=== PATIENT | female | born 1970 | race Caucasian/White ===

== ENCOUNTER → 2022-11-08 09:24 | Outpatient (CLI) | payer OTHER, SELFPAY ==
--- NOTE | ~2022-11-08 | MMUS_ITS ---
EXAMINATION: MM diagnostic frieda BI w yon, US breast BI complete HISTORY: Follow-up breast asymmetries TECHNIQUE: Additional 3-D tomosynthesis images of the breasts were performed and synthetic 2-D images were generated. CAD analysis was submitted and interpreted. High resolution bilateral complete breas t ultrasound was performed. COMPARISON: Comparison to multiple prior studies sequentially, with oldest reviewed study dated 06/2020. BREAST PARENCHYMAL COMPOSITION: Breast composed of scattered areas of fibroglandular density FINDINGS: MAMMOGRAPHIC FINDINGS: There are no discrete masses, suspicious clusters of calcifications or focal architectural distortion in either breast to suggest malignancy. ULTRASOUND: Complete bilateral US of all 4 quadrants of the breasts and retroareolar region was reviewed. Right breast ultrasound: At 12:00, 4 cm from the nipple there is a 5 mm cyst. At 1:00, 3 cm from the nipple, there is a 3 mm cyst. Left breast: At 1:00, 2 cm from the nipple, there is a minimally complicated 3 mm cyst. At 4:00, 0.5 cm from the nipple, there is an oval circumscribed parallel oriented hypoechoic mass measuring 4 mm w ithout posterior features or internal vascularity, likely benign. No other mass identified. IMPRESSION: 1. No evidence for malignancy in the right breast. Probable benign left breast mass by ultrasound at 4:00, 0.5 cm from the nipple. 2. Recommend 6 month follow-up Limited left breast ultrasound BI-RADS category 3, probably benign findings. Reviewed, dictated and finalized at location A. IMPRESSION: 1. No evidence for malignancy in the right breast. Probable benign left breast mass by ultrasound at 4:00, 0.5 cm from the nipple. 2. Recommend 6 month follow-up Limited left breast ultrasound BI-RADS category 3, probably benign findings.
== END ==
PROVIDERS: PCP Obstetrics & Gynecology Gynecology; Visit Provider Obstetrics & Gynecology Gynecology
DX: R92.8 Other abnormal and inconclusive findings on diagnostic imaging of breast (principal)
CPT/HCPCS: 76641; 77062; 77066; G0279

== ENCOUNTER → 2023-05-03 08:44 | Outpatient (CLI) | payer OTHER, SELFPAY ==
--- NOTE | ~2023-05-03 | MMUS_ITS ---
EXAMINATION: MM diagnostic frieda LT w yon, US breast LT limited HISTORY: Six-month follow-up for probably benign left breast mass TECHNIQUE: Craniocaudal, mediolateral, and mediolateral oblique 3-D tomosynthesis images of the left breast were performed and synthetic 2-D images were generated. CAD analysis was submitted and interpr eted. High resolution limited left breast ultrasound was performed. COMPARISON: 11/08/2022, 05/10/2022, 09/29/2021, 09/25/2021, 09/22/2020 BREAST PARENCHYMAL COMPOSITION: There are scattered areas of fibroglandular density. FINDINGS: MAMMOGRAPHIC FINDINGS: There is stable chronic focal asymmetry in the middle third of the upper outer quadrant of the breast . No suspicious mass, calcification, or architectural distortion are identified. ULTRASOUND: There are small cysts in the upper outer quadrant of the left breast. A mildly dilated duct is seen a t the 4:00 location near the nipple. The previously described periareolar left breast mass is not def initely identified. IMPRESSION: 1. No mammographic or sonographic evidence of malignancy. 2. Recommend routine screening mammography, due in October. BI-RADS Category 2: Benign finding(s). Reviewed, dictated and finalized at location A. IC CLEANER IMPRESSION: 1. No mammographic or sonographic evidence of malignancy. 2. Recommend routine screening mammography, due in October. BI-RADS Category 2: Benign finding(s).
== END ==
PROVIDERS: PCP Obstetrics & Gynecology Gynecology; Visit Provider Obstetrics & Gynecology Gynecology
DX: N63.20 Unspecified lump in the left breast, unspecified quadrant (principal)
CPT/HCPCS: 76642; 77061; 77065; G0279

== ENCOUNTER 2023-11-11 08:41 | Outpatient (CLI) | payer OTHER, SELFPAY ==
--- NOTE | ~2023-11-11 | MM_ITS ---
EXAMINATION: MM screening frieda BI w yon HISTORY: Screening TECHNIQUE: Craniocaudal and mediolateral oblique 3-D tomosynthesis images were obtained and synthetic 2-D images were generated. CAD analysis was submitted and interpreted. COMPARISON: Comparison to multiple prior studies sequentially, with oldest reviewed study dated 11/08. BREAST PARENCHYMAL COMPOSITION: Not dense: There are scattered areas of fibroglandular density. FINDINGS: There are focal asymmetries in the upper outer quadrant of the left breast. The right breas t is stable without evidence for malignancy. IMPRESSION: 1. Focal asymmetries in the upper outer quadrant of the left breast are more prominent than on prior study, particularly on the MLO view. 2. Additional mammographic views and possible breast ultrasound are recommended. BI-RADS Category 0: Incomplete: Needs additional imaging evaluation. Reviewed, dictated and finalized at location B. IMPRESSION: 1. Focal asymmetries in the upper outer quadrant of the left breast are more pr ominent than on prior study, particularly on the MLO view. 2. Additional mammographic views and possible breast ultrasound are recommended . BI-RADS Category 0: Incomplete: Needs additional imaging evaluation.
== END 2023-11-11 08:42 | disposition home or self-care (01) ==
LOC: CHSIMG 08:44
PROVIDERS: Visit Provider Obstetrics & Gynecology Gynecology
DX: Z12.31 Encounter for screening mammogram for malignant neoplasm of breast (principal); R92.8 Other abnormal and inconclusive findings on diagnostic imaging of breast
CPT/HCPCS: 77063; 77067

== ENCOUNTER 2023-11-15 08:29 | Outpatient (CLI) | payer OTHER, SELFPAY ==
--- NOTE | ~2023-11-15 | MM_ITS ---
EXAMINATION: MM diagnostic frieda LT w yon HISTORY: Follow-up left breast asymmetry TECHNIQUE: Additional 3-D tomosynthesis images of the left breast were performed and synthetic 2-D im ages were generated. CAD analysis was submitted and interpreted. COMPARISON: Comparison to multiple prior studies sequentially, with oldest reviewed study dated 11/08. BREAST PARENCHYMAL COMPOSITION: Not dense: There are scattered areas of fibroglandular density. FINDINGS: There is an area of architectural distortion in the upper outer quadrant of the left breast corresponding to the prior lumpectomy site. No suspicious discrete masses or calcifications are iden tified. IMPRESSION: 1. Asymmetry corresponds to prior lumpectomy site. No suspicious masses or evidence of malignancy. 2. Routine yearly screening mammogram and regular clinical breast examination are recommended. BI-RADS Category 2: Benign finding(s). Reviewed, dictated and finalized at location B. IMPRESSION: 1. Asymmetry corresponds to prior lumpectomy site. No suspicious masses or evid ence of malignancy. 2. Routine yearly screening mammogram and regular clinical breast examination a re recommended. BI-RADS Category 2: Benign finding(s).
== END 2023-11-15 08:30 | disposition home or self-care (01) ==
PROVIDERS: Visit Provider Obstetrics & Gynecology Gynecology
DX: R92.8 Other abnormal and inconclusive findings on diagnostic imaging of breast (principal)
CPT/HCPCS: 77061; 77065; G0279

== ENCOUNTER 2024-02-23 14:39 | Emergency (ER) | payer OTHER, SELFPAY ==
--- NOTE | 2024-02-23 14:42 | ED.URI ---
HPI - URI/Sore Throat General Chief Complaint: Upper Respiratory Infection Stated Complaint: sore throat Time Seen by Provider: 02/23/24 14:42 Source: patient Mode of arrival: ambulatory Limitations: no limitations History of Present Illness HPI Narrative: Josette is a 54-year-old female patient presenting to the clinic today with complaints of a sore throat and nasal drainage since yesterday. She denies any known fever or body aches but has had some chills. Was exposed last week into her [id number] who had strep. MD elicited complaint: sore throat and nasal congestion Related Data Home Medications Medication Instructions Recorded Confirmed levonorgestrel 21 mcg/24 hr (up to 1 device intrauterine ONCE 02/23/24 02/23/24 8 years) 52 mg intrauterine device (Mirena) propranolol 80 mg capsule,24 80 mg PO DAILY 02/23/24 02/23/24 hr,extended release topiramate 50 mg tablet 50 mg PO BID 02/23/24 02/23/24 Allergies Allergy/AdvReac Type Severity Reaction Status Date / Time cephalexin AdvReac Mild Rash Verified 02/23/24 14:57 Penicillins AdvReac Mild Rash Verified 02/23/24 14:57 Sulfa (Sulfonamide AdvReac Mild Rash Verified 02/23/24 14:57 Antibiotics) Review of Systems Review of Systems: Pertinent positives per HPI. Patient denies any fever, chills, rash, headache, visual changes, dizziness, cough, shortness of breath, chest pain, palpitations, nausea, vomiting, diarrhea, constipation, abdominal pain, or any urinary issues. PMFSH Comments At the time of my signature, I reviewed and agree with the nursing past medical, surgical, social, and family history. There is no relevant family history pertinent to the patient complaint. Exam Narrative: General: Well-developed, well nourished, in no apparent distress Head: Normocephalic, atraumatic Eyes: Pupils equally round and reactive to light bilaterally, EOM intact, sclera and conjunctive clear, no discharge, lids normal Ears: TMs intact and clear, ear canals clear, no drainage, grossly hearing normal. Nose: Nares patent, clear nasal discharge, no inflammation, no sinus tenderness. Mouth: Oral pharynx without lesions or masses, good dentition, MMM. Postnasal drip Neck: Supple, trachea midline, no enlargement of anterior or posterior cervical nodes, no thyroid masses or goiter palpable. Cardio: Regular rate and rhythm, s1 and s2 normal, no murmur appreciated. Resp: Clear to auscultation bilaterally, no rhonchi, rales, wheezing or rubs Course Course Emergency Course: Portions of this record may have been created with voice recognition software. Level of Care: Express Care Visit Vital Signs Vital signs: Vital Signs Temperature 37.0 C 02/23/24 14:55 Pulse Rate 65 02/23/24 14:55 Respiratory Rate 18 02/23/24 14:55 Blood Pressure 145/77 H 02/23/24 14:55 Pulse Oximetry 100 02/23/24 14:55 Oxygen Delivery Room Air 02/23/24 14:55 Temperature 37.0 C 02/23/24 14:55 Pulse Rate 65 02/23/24 14:55 Respiratory Rate 18 02/23/24 14:55 Blood Pressure 145/77 H 02/23/24 14:55 Pulse Oximetry 100 02/23/24 14:55 Oxygen Delivery Room Air 02/23/24 14:55 Vital signs reviewed MDM - URI/Sore Throat MDM Narrative Medical decision making narrative: At the time of visit patient is resting comfortably on the exam table. Patient appears to be nontoxic. Labs: Strep test was obtained and was negative. We will send strep for culture. Plan: I suspect patient has URI with postnasal drip. Supportive measures were discussed with the patient and they voiced understanding discharge instructions and agrees to treatment plan. Return precautions reviewed Differential Diagnosis Differential diagnosis: Likely upper respiratory infection, otitis media, sinusitis, viral infection, bronchitis, influenza, pharyngitis and other (COVID) Lab Data Labs: Lab Results 02/23/24 Range/Units 15:01 POC Grp A Strep Screen Negative (Negative) Discharge Plan Discharge Clinical Impression: PND (post-nasal drip) URI (upper respiratory infection) Qualifiers: URI type: unspecified URI Qualified Code(s): J06.9 - Acute upper respiratory infection, unspecified Patient Disposition: Home, Self-Care Condition: Stable Instructions: Antibiotic Form, Upper Respiratory Infection (ED), Postnasal Drip (DC) Additional Instructions: Strep test was negative in the clinic today. We will send strep for culture if this comes back positive we will contact you in place you on antibiotics at that time May take Sudafed as needed for nasal congestion. Increase fluids and stay well hydrated Tylenol/motrin for pain/fever Flonase and OTC antihistamines as directed Vicks vapor rub to open sinuses Sinus rinses for congestion Cepacol spray, cough drops, throat lozenges, warm tea with honey/lemon, gargle salt water to soothe throat BRAT diet for diarrhea Clear liquids x 24 hours then advance as tolerated for nausea/vomiting Go to the ED if you develop a worsening in your condition- high fever not controlled by Tylenol or Motrin, dehydration, weakness, lethargy, shortness of breath, or chest pain. Follow up with your PCP in 3-5 days if symptoms persist. Prescriptions: No Action propranolol 80 mg capsule,extended release 24hr 80 mg PO DAILY topiramate 50 mg tablet 50 mg PO BID Mirena 21 mcg/24hr (up to 8 yrs) 52 mg Intrauterine Device 1 device INTRAUTERINE ONCE Rx Instructions: as a single dose Follow-up/Referrals: UNKNOWN,DOCTOR [Non-Staff] - Time of Disposition: 15:06 Quality NIHSS Nursing Documentation ED NIHSS nursing documentation: reviewed/agree
[2024-02-23 14:55] VITALS: BP 145/77; PULSE 65; RESP 18; TEMP 37; O2SAT 100
[2024-02-23 15:04] LABS: EDSTREPNEGPOS1 Negative (Negative)
== END 2024-02-23 15:08 | disposition home or self-care (01) ==
PROVIDERS: Emergency Provider Nurse Practitioner Family
DX: R09.82 Postnasal drip (principal); J06.9 Acute upper respiratory infection, unspecified
CPT/HCPCS: 87081; 87880; 99213; G0463

== ENCOUNTER 2024-11-12 12:25 | Outpatient (CLI) | payer OTHER, SELFPAY ==
--- NOTE | ~2024-11-12 | MM_ITS ---
EXAMINATION: MM screening frieda BI w yon HISTORY: Screening TECHNIQUE: Craniocaudal and mediolateral oblique 3-D tomosynthesis images were obtained and synthetic 2-D images were generated. CAD analysis was submitted and interpreted. COMPARISON: Comparison to multiple prior studies sequentially, with oldest reviewed study dated 11/08. BREAST PARENCHYMAL COMPOSITION: There are scattered areas of fibroglandular density. FINDINGS: There is no evidence of suspicious mass, calcification, or architectural distortion to sug gest malignancy in either breast. IMPRESSION: 1. No mammographic evidence of malignancy. 2. Recommend routine screening mammography in one year. BI-RADS Category 1: Negative Reviewed, dictated and finalized at location B.
--- OUTSIDE RECORDS SUMMARY | 2024-11-12 12:29 | XMS_ITS | Clinical Summary ---
[facility] Organization [facility] First Address [address] [place] [address] Care Team Providers Care Benefits Sales Consultant Name Role Phone Joseph Camargo MD Primary Care Provider [phone]- [phone] Allergies Active Allergy Reactions Criticality Noted Date Comments Cephalexin Rash Low 07/25/2006 cephalexin monohydrate Diclofenac Sodium Rash Low 09/13/2021 diclofenac sodium Doxycycline Rash Low 05/24/2014 doxycycline hyclate Pecan Nut Itching,Swelling High 02/20/2023 Penicillins Rash Low 02/20/2023 Sulfa (Sulfonamide Antibiotics) Rash Low 12/08/2009 Substance with sulfonamide structure and antibacterial mechanism of action (substance) Sulfamethoxazole-Trime thoprim Rash Low 08/12/2006 Bactrim [place] Itching,Swelling High 02/20/2023 Medications ASCORBIC ACID, VITAMIN C, ORAL Take by mouth daily. Active ERGOCALCIFEROL, VITAMIN D2, ORAL Take 4,000 Int'l Units/day by mouth daily. Active MAGNESIUM ORAL Take 200 mg by mouth daily. Active ferrous fumarate/vit Bcomp,C (SUPER B COMPLEX ORAL) daily. Acti ve glucosamine-D3- [place] serr (Osteo Bi-Flex, 5-Loxin,) 1,500-400-100 mg-unit-mg Tablet daily. Active levonorgestrel (MIRENA INTRAUTERINE) Active Fkliq-2-VFP-EPA -fish oil (Fish OiL) 300-1,000 mg Capsule Take 2 Capsules by mouth daily with breakfast. Active VITAMIN E ORAL Take by mouth daily. Active multivit-min/fe rrous fumarate (MULTI VITAMIN ORAL) Take by mouth daily. Catalyn Active cetirizine (ZyrTEC) 10 mg tablet Take 10 mg by mouth daily. Active fluticasone propionate (FLONASE) 50 mcg/spray [place], Suspension nasal inhaler Administer 2 Sprays in each nostril 1 time daily as needed for Rhinitis. Active propranoloL (INDERAL LA) 120 mg Long Acting 24 hour capsule Take 1 Capsule (120 mg) by mouth daily. 30 Capsule 4 5 Active Active Problems Patient Care Coordination No te Formatting of this note migh t be different from the original. Cardiology - Emmett Vieira Problem Noted Date Diagnosed Date Palpitations 02/20/2023 PAC (premature atrial contraction) 02/20/2023 Aortic valve regurgitation 02/20/2023 Encounters Date Type Department Care Team Description 10/20/2024 External Device Data STL ABSTRACTION Provider, Abstract 10/19/2024 Results Follow-Up [facility] - [address] [place] [address] [address] Jorge L Crum MD ECHO COMPLETE - CONTRAST AND STRAIN IF INDICATED 10/19/2024 Telephone [facility] - [address] [place] [address] [address] Jorge L Crum MD Results (echocardiogram) 10/14/2024 1:47 PM CDT - 10/14/2024 11:59 PM CDT Hospital Encounter [facility] Ultrasound [address] [place] [address] Jorge L Crum MD Discharge Disposition: Home or Self Care 10/13/2024 1:45 PM CDT Office Visit [facility] - [address] [place] [address] [address] Jorge L Crum MD Palpitations (Primary Dx); PAC (premature atrial contraction); Aortic valve insufficiency, etiology of cardiac valve disease unspecified from Last 3 Months Family History Medical History Relation Name Comments Atrial fibrillation Father Breast Cancer Maternal Grandmother Stroke Maternal Uncle Breast Cancer Mother Hypertension Mother Stroke Paternal Aunt Relation Name Status Comments Father Alive Maternal Grandmother Maternal Uncle Alive Mother Alive Paternal Aunt Alive Social History Tobacco Use Types Packs/Day Years Used Date Smoking Tobacco: Never Passive Smoke Exposure: Never Smokeless Tobacco: Never Tobacco Cessation:Counseling Given: Not Answered Alcohol Use Standard Drinks/Week Comments Not Currently 0 (1 standard drink = 0.6 oz pur e alcohol) Comments No Sex and Gender Information Value Date Recorded Sex Assigned at Not on file Legal Sex Female 10:42 AM CDT Gender Identity Not on file Sexual Orientation Not on file Last Filed Vital Signs Vital Sign Reading Time Taken Comments Blood Pressure 118/70 10/13/2024 1:54 PM CDT Pulse 71 10/13/2024 1:54 PM CDT Temperature - - Respiratory Rate 16 10/13/2024 1:54 PM CDT Oxygen Saturation 99% 10/13/2024 1:54 PM CDT Inhaled Oxygen Concentration - - Weight 80.3 kg (177 lb) 10/13/2024 1:54 PM CDT Height 172.7 cm (5' 8) 10/13/2024 1:54 PM CDT Body Mass Index 26.91 10/13/2024 1:54 PM CDT Plan of Treatment Health Maintenance Due Date Last Done Comments Pre-Diabetes and Diabetes Screening 1970 DTAP/TDAP/TD VACCINES (1 - Tdap) 1990 HEPATITIS B VACCINES (1 of 3 - 19+ 3-dose series) 1990 HPV/Cotest (21-29) 02/01/1992 CERVICAL CANCER SCREENING 2001 HPV/Cotest (30-65) 2001 PAP SMEAR 2001 COLORECTAL SCREENING 02/01/2016 Colorectal Cancer Screening 02/01/2016 FIT-DNA Q 3 years 02/01/2016 FIT/FOBT Q 1 year 02/01/2016 Flex Sig/CT Colonography Q 5 years 02/01/2016 ZOSTER VACCINE (1 of 2) 2021 BREAST CANCER SCREENING 05/10/2023 05/10/19 23, 09/29/2021, 09/25/2021, Additional history exists INFLUENZA VACCINE (#1) 2024 02/13/2024 Procedures Procedure Name Priority Date/Time Associated Diagnosis Comments ECHO COMPLETE Routine 10/14/2024 2:31 PM CDT Palpitations Aortic valve insufficiency, etiology of cardiac valve disease unspecified DE ECG ROUTINE ECG W/LEAST 12 LDS W/I&R Routine 10/13/2024 1:45 PM CDT Palpitations from Last 3 Months Results * ECHO COMPLETE - CONTRAST AND STRAIN IF INDICATED (10/14/2024 2:31 PM CDT) EJECTION FRACTION 60 INTERFACE SYSTEM 10/14/2024 2:01 PM CDT Narrative INTERFACE SYSTEM - 10/14/2024 3:49 [place] [address] Transthoracic Echocardiogram Patient: Josette Velasquez Study ID: [id number] Gender: F : 1970 Age: 54 Race: DOLLY Height 172.7cm Study Date: 10/14/2024 Weight: 80.3kg Access. #: [id number] BP: 133 / 81 *Referring Physician:* Jorge L Crum Roberto *Ordering Physician:* Jorge L Crum *Health Researcher:* BARRY chief nuclear medicine technologist: Nurse: Indications: Palpitations STUDY CONCLUSIONS: SUMMARY: - Left ventricle: The cavity size was normal. Wall thickness was normal. Global systolic function is normal. For Epic reporting: the left ventricular ejection fraction is 60% . Diastolic function assessment consistent with abnormal left ventricular relaxation (grade 1 diastolic dysfunction). - Aortic valve: Mild regurgitation. - Left atrium: The atrium is normal in size. - Right ventricle: The cavity size is normal. Systolic function is normal. - Tricuspid valve: Mild regurgitation. - Pulmonary arteries: The peak systolic pressure is 20mm Hg. Cardiac Anatomy: LEFT VENTRICLE: The cavity size was normal. Wall thickness was normal. Global systolic function is normal. For Epic reporting: the left ventricular ejection fraction is 60% . Diastolic function assessment consistent with abnormal left ventricular relaxation (grade 1 diastolic dysfunction). AORTIC VALVE: Structurally normal valve. Trileaflet. Mild regurgitation. The mean systolic gradient is 3mm Hg. The peak systolic gradient is 5mm Hg. The LVOT to aortic valve VTI ratio is 0.82. The valve area is 2.2cm^2. The ratio of LVOT to aortic valve peak velocity is 0.81. AORTA: Aortic root: The root is normal-sized. MITRAL VALVE: Structurally normal valve. No significant regurgitation. LEFT ATRIUM: The atrium is normal in size. RIGHT VENTRICLE: The cavity size is normal. Systolic function is normal. PULMONIC VALVE: Structurally normal valve. No significant regurgitation. TRICUSPID VALVE: Structurally normal valve. Mild regurgitation. RIGHT ATRIUM: The atrium was normal in size. SYSTEMIC VEINS: Inferior vena cava: The IVC is normal-sized. PERICARDIUM: There is no pericardial effusion. Measurements Left ventricle Value Ref IVS, ED, LAX (H) 1.0 cm 0.6 - 0.9 PEACE, LAX (N) 4.4 cm 3.8 - 5.2 ESD, LAX (N) 2.8 cm 2.2 - 3.5 PEACE/bsa, LAX (N) 2.3 cm/m^2 2.3 - 3.1 FS, LAX (N) 37 % 27 - 45 Mid-wall FS, LAX (N) 17 % 15 - 23 PW, ED, LAX (N) 0.9 cm 0.6 - 0.9 IVS/PW, ED, LAX 1.07 --------- EF, 2-p (N) 61 % 54 - 74 SV, 2-p 61 ml --------- SV/bsa, 2-p 31.2 ml/m^2 --------- E', lat lior, TDI (L) 9.0 cm/sec >=10.0 E/e', lat lior, TDI (N) 7 <=13 E', med lior, TDI (N) 8.2 cm/sec >=7.0 E/e', med lior, TDI 8 --------- E', avg, TDI 8.6 cm/sec --------- E/e', avg, TDI (N) 8 <=14 LVOT Value Ref Area 2.6 cm^2 --------- Peak damian, S 0.94 m/sec --------- VTI, S 20.0 cm --------- Left atrium Value Ref Vol, ES, 2-p 34 ml --------- Vol/bsa, ES, 2-p (N) 18 ml/m^2 16 - 34 Right atrium Value Ref Vol, ES, A/L 35 ml --------- Aortic valve Value Ref Peak v, S 1.2 m/sec --------- VTI, S 24.5 cm --------- Mean grad, S 3 mm Hg --------- Peak grad, S 5 mm Hg --------- LVOT/AV, VTI ratio 0.82 --------- TAI, VTI 2.2 cm^2 --------- TAI/bsa, VTI 1.11 cm^2/m^2 --------- LVOT/AV, Vpeak ratio 0.81 --------- TAI, Vmax 2.1 cm^2 --------- TAI/bsa, Vmax 1.1 cm^2/m^2 --------- AR PHT 1126 ms --------- Mitral valve Value Ref Peak E 0.66 m/sec --------- Peak A 0.59 m/sec --------- Peak E/A ratio 1.1 --------- MVA, PHT 3.8 cm^2 --------- MVA/bsa, PHT 1.94 cm^2/m^2 --------- Pulmonic valve Value Ref Peak v, S 0.74 m/sec --------- Mean grad, S 1 mm Hg --------- Peak grad, S 2 mm Hg --------- Tricuspid valve Value Ref TR peak v (N) 1.9 m/sec <=2.8 Peak RV-RA grad, S 15 mm Hg --------- Ascending aorta Value Ref AAo AP diam, S 2.6 cm --------- AAo AP diam/bsa, S 1.3 cm/m^2 --------- Pulmonary artery Value Ref Pressure, S 20 mm Hg --------- Legend: (L) and (H) jesus values outside specified reference range. (N) man values inside specified reference range. Procedure data: [facility] Study status: Routine. Procedure information: A transthoracic echocardiogram was performed. Scanning was performed from the parasternal, apical, and subcostal acoustic windows. Transthoracic echocardiogram. Complete 2D, complete spectral Doppler, and color Doppler. Birthdate: Patient birthdate: 1970. Age: Patient is 54year(s) old. Sex: gender: female. Height: 172.7cm. 68in. Weight: 80.3kg. 177lb. Body mass index: 26.9kg/m^2. Body surface area: 1.94m^2. Blood pressure: 133/81 Patient status: Outpatient. Study date: Study date: 10/14/2024. Study time: 02:01 PM. Location: Echo laboratory. Prepared and Electronically Authenticated Yosi Mercedes [id number] Procedure Note Yosi Mercedes MD - 10/14/2024 [facility], [facility] [address] [place] [address] Transthoracic Echocardiogram Patient: Rehan Velasquez Study ID:[id number] Gender: F : 1970 Age: 54 Race: CAU Height 172.7cm Study Date: 10/14/2024 Weight: 80.3kg Access. #:[id number] BP: 133 / 81 *Referring Physician:* Jorge L Crum Roberto *Ordering Physician:* Jorge L Crum *Health Researcher:* BARRY chief nuclear medicine technologist: Nurse: Indications: Palpitations STUDY CONCLUSIONS: SUMMARY: - Left ventricle: The cavity size was normal. Wall thickness was normal. Global systolic function is normal. For Epic reporting: the leftventricular ejection fraction is 60% . Diastolic function assessment consistentwith abnormal left ventricular relaxation (grade 1 diastolic dysfunction). - Aortic valve: Mild regurgitation. - Left atrium: The atrium is normal in size. - Right ventricle: The cavity size is normal. Systolic function isnormal. - Tricuspid valve: Mild regurgitation. - Pulmonary arteries: The peak systolic pressure is 20mm Hg. Cardiac Anatomy: LEFT VENTRICLE: The cavity size was normal. Wall thickness was normal.Global systolic function is normal. For Epic reporting: the left ventricularejection fraction is 60% . Diastolic function assessment consistent with abnormalleft ventricular relaxation (grade 1 diastolic dysfunction). AORTIC VALVE: Structurally normal valve. Trileaflet. Mildregurgitation. The mean systolic gradient is 3mm Hg. The peak systolic gradient is 5mmHg. The LVOT to aortic valve VTI ratio is 0.82. The valve area is 2.2cm^2.The ratio of LVOT to aortic valve peak velocity is 0.81. AORTA: Aortic root: The root is normal-sized. MITRAL VALVE: Structurally normal valve. No significantregurgitation. LEFT ATRIUM: The atrium is normal in size. RIGHT VENTRICLE: The cavity size is normal. Systolic function isnormal. PULMONIC VALVE: Structurally normal valve. No significantregurgitation. TRICUSPID VALVE: Structurally normal valve. Mild regurgitation. RIGHT ATRIUM: The atrium was normal in size. SYSTEMIC VEINS: Inferior vena cava: The IVC is normal-sized. PERICARDIUM: There is no pericardial effusion. Measurements Left ventricle Value Ref IVS, ED, LAX (H) 1.0 cm 0.6 - 0.9 PEACE, LAX (N) 4.4 cm 3.8 - 5.2 ESD, LAX (N) 2.8 cm 2.2 - 3.5 [place]/bsa, LAX (N) 2.3 cm/m^2 2.3 - 3.1 FS, LAX (N) 37 % 27 - 45 Mid-wall FS, LAX (N) 17 % 15 - 23 PW, ED, LAX (N) 0.9 cm 0.6 - 0.9 IVS/PW, ED, LAX 1.07 --------- EF, 2-p (N) 61 % 54 - 74 SV, 2-p 61 ml --------- SV/bsa, 2-p 31.2 ml/m^2 --------- E', lat lior, TDI (L) 9.0 cm/sec >=10.0 E/e', lat lior, TDI (N) 7 <=13 E', med lior, TDI (N) 8.2 cm/sec >=7.0 E/e', med lior, TDI 8 --------- E', avg, TDI 8.6 cm/sec --------- E/e', avg, TDI (N) 8 <=14 LVOT Value Ref Area 2.6 cm^2 --------- Peak damian, S 0.94 m/sec --------- VTI, S 20.0 cm --------- Left atrium Value Ref Vol, ES, 2-p 34 ml --------- Vol/bsa, ES, 2-p (N) 18 ml/m^2 16 - 34 Right atrium Value Ref Vol, ES, A/L 35 ml --------- Aortic valve Value Ref Peak v, S 1.2 m/sec --------- VTI, S 24.5 cm --------- Mean grad, S 3 mm Hg --------- Peak grad, S 5 mm Hg --------- LVOT/AV, VTI ratio 0.82 --------- TAI, VTI 2.2 cm^2 --------- TAI/bsa, VTI 1.11 cm^2/m^2 --------- LVOT/AV, Vpeak ratio 0.81 --------- TAI, Vmax 2.1 cm^2 --------- TAI/bsa, Vmax 1.1 cm^2/m^2 --------- AR PHT 1126 ms --------- Mitral valve Value Ref Peak E 0.66 m/sec --------- Peak A 0.59 m/sec --------- Peak E/A ratio 1.1 --------- MVA, PHT 3.8 cm^2 --------- MVA/bsa, PHT 1.94 cm^2/m^2 --------- Pulmonic valve Value Ref Peak v, S 0.74 m/sec --------- Mean grad, S 1 mm Hg --------- Peak grad, S 2 mm Hg --------- Tricuspid valve Value Ref TR peak v (N) 1.9 m/sec <=2.8 Peak RV-RA grad, S 15 mm Hg --------- Ascending aorta Value Ref AAo AP diam, S 2.6 cm --------- AAo AP diam/bsa, S 1.3 cm/m^2 --------- Pulmonary artery Value Ref Pressure, S 20 mm Hg --------- Legend: (L) and (H) jesus values outside specified reference range. (N) mna values inside specified reference range. Procedure data: [facility] Study status: Routine. Procedure information:A transthoracic echocardiogram was performed. Scanning was performed fromthe parasternal, apical, and subcostal acoustic windows.Transthoracic echocardiogram. Complete 2D, complete spectral Doppler, and colorDoppler. Birthdate: Patient birthdate: 1970. Age: Patient is 54year(s)old. Sex: gender: female. Height: 172.7cm. 68in. Weight: 80.3kg.177lb. Body mass index: 26.9kg/m^2. Body surface area: 1.94m^2. Bloodpressure: 133/81 Patient status: Outpatient. Study date: Study date:10/14/2024. Study time: 02:01 PM. Location: Echo laboratory. Prepared and Electronically Authenticated Yosi Mercedes [id number] us Jorge L Crum MD US ORDERREGINA mckeon Result INTERFACE SYSTEM Refer to clinic/hospital department * DE ECG ROUTINE ECG W/LEAST 12 LDS W/I&R (10/13/2024 1:45 PM CDT) Narrative [facility] [address] - 10/13/2024 1:45 PM CDT Jorge L Crum MD 10/13/2024 2:26 PM EKG Date/Time: 10/13/2024 1:45 PM Performed by: Jorge L Crum MD Authorized by: Jorge L Crum MD Rhythm: sinus rhythm Procedure Note Jorge L Crum MD - 10/13/2024 1:49 PM CDT [facility] Cardiology Outpatient Evaluation Note Primary Care Physician Joseph Camargo MD Reason for visit: Chief Complaint Patient presents with Palpitations Lost breath and felt super dizzy. Assessment/Plan: 1. Palpitations 2. PACs 3. Aortic regurgitation -Will increase her propranolol from 80 to 120 mg daily -Avoid stimulants -Discussed the importance of lifestyle changes -We will plan on a repeat transthoracic echocardiogram to reassess heraortic regurgitation or sooner if needed We will keep her updated over test results and any furtherrecommendations. Thank you for allowing us to participate in this hercare, if you have any questions or concerns please do not hesitate tocontact me. Jorge L Crum MD Subjective: Dear Joseph Camargo MD, We had the pleasure of seeing Ms. Velasquez at [facility]. Asyou recall Ms. Velasquez is a 54 y.o. female with past medical history of mildto moderate aortic regurgitation, hypertension and symptomatic PACstreated with propranolol. She also has a history of anxiety, Graves'disease, migraines and cervical dystonia. Since her last visit she has been stable overall. She has continuedhaving palpitations described as a brief fluttering for a few seconds.She had 1 episode where she associated lightheadedness and generalizedweakness but thinks this was related to not eating or drinking anythingfor prolonged time. She denied any symptoms of angina or CHF. She hasnot had any other episodes of near syncope or syncope. She has beencompliant with her medications. She has not noticed any significantdyspnea on exertion but has gained weight and feels like she is out ofshape. Her most recent echocardiogram from 06/19/2022 revealed an EF of 58% withabnormal diastolic function and mild to moderate aortic regurgitation Past Medical History Past Medical History Past Medical History: Diagnosis Date Aortic regurgitation Cervical dystonia Past Surgical History No past surgical history on file. Social History Social History Tobacco Use Smoking status: Never Passive exposure: Never Smokeless tobacco: Never Substance Use Topics Alcohol use: Not Currently Family History Family History Problem Relation Name Age of Onset Atrial fibrillation Father Hypertension Mother Breast Cancer Mother Breast Cancer Maternal Grandmother Stroke Paternal Aunt Stroke Maternal Uncle Allergies Allergies Allergen Reactions Pecan Nut Itching and Swelling [place] Itching and Swelling Cephalexin Rash cephalexin monohydrate Diclofenac Sodium Rash diclofenac sodium Doxycycline Rash doxycycline hyclate Penicillins Rash Sulfa (Sulfonamide Antibiotics) Rash Substance with sulfonamide structure and antibacterial mechanism ofaction (substance) Sulfamethoxazole-Trimethoprim Rash Bactrim I have reviewed the medication list as documented in the EMR Current Medications Current Outpatient Medications on File Prior to Visit Medication Sig Dispense Refill cetirizine (ZyrTEC) 10 mg tablet Take 10 mg by mouth daily. fluticasone propionate (FLONASE) 50 mcg/spray [place], Suspension nasalinhaler Administer 2 Sprays in each nostril 1 time daily as needed forRhinitis. ASCORBIC ACID, VITAMIN C, ORAL Take by mouth daily. ERGOCALCIFEROL, VITAMIN D2, ORAL Take 4,000 Int'l Units/day by mouthdaily. MAGNESIUM ORAL Take 200 mg by mouth daily. ferrous fumarate/vit Bcomp,C (SUPER B COMPLEX ORAL) daily. kjlcjsjtlsl-[id number]-Jqdmddqab serr (Osteo Bi-Flex, 5-Loxin,) 1,151-984-350ih-unit-mg Tablet daily. levonorgestrel (MIRENA INTRAUTERINE) Zslgj-9-GFT-EPA-fish oil (Fish OiL) 300-1,000 mg Capsule Take 2 Capsulesby mouth daily with breakfast. propranoloL (INDERAL LA) 80 mg Long Acting 24 hour capsule Take 80 mg bymouth daily. VITAMIN E ORAL Take by mouth daily. multivit-min/ferrous fumarate (MULTI VITAMIN ORAL) Take by mouth daily.Angela propranoloL (INDERAL) 10 mg tablet Take 1 Tablet (10 mg) by mouth every 4hours as needed for Other (See Comment) (palpitations). (Patient nottaking: Reported on 10/13/2024) 30 Tablet 2 No current facility-administered medications on file prior to visit. Review of Systems: Neurologic: The patient denies any history of seizure or stroke. Eyes: Patient denies any conjunctival icterus. Ears: Patient denies any ear pain or drainage. Nose: Patient denies any epistaxis or rhinorrhea. Throat: Patient denies sore throat or change in voice. Cardiovascular: Per HPI. Respiratory: The patient denies any chronic cough or hemoptysis. Gastrointestinal: The patient denies any nausea, vomiting, diarrhea orconstipation. Genitourinary: Patient denies any dysuria or hematuria. Musculoskeletal: Patient denies any pain, lower leg edema. Psychiatric: Patient denies any depression or anxiety. Hematologic: Patient denies any history of cancer. The remainder of the review of systems is negative or as noted in theHPI. Physical Exam BP 118/70 Pulse 71 Resp 16 Ht 5' 8 (1.727 m) Wt 80.3 kg (177lb) SpO2 99% BMI 26.91 kg/m General appearance alert, cooperative, no distress, appears stated age Head: Normocephalic, without obvious abnormality, atraumatic Mouth: Moist mucous membranes Eyes: Sclera are non-icteric Nose: Nares normal. Septum midline. Neck: Supple, symmetrical, trachea midline, no carotid bruit and no JVD Lungs: Clear to auscultation bilaterally Heart: RRR , S1, S2 normal, no murmur, click, rub or gallop Abdomen: Soft, non-tender. Bowel sounds normal. No masses, Noorganomegaly Extremities: Extremities normal, atraumatic, no cyanosis or no edema Pulses 2+ and symmetric Neurologic: Grossly normal. Alert and oriented x3. Psychiatric: Mood appropriate Skin: No rashes or bruises. Data Review: EKG Date/Time: 10/13/2024 1:45 PM Performed by: Jorge L Crum MD Authorized by: Jorge L Crum MD Rhythm: sinus rhythm Annotated Image Chemistry: No results found for: NA, K, CL, CO2, BUN, CREAT, CA, ALT,AST CBC: No results found for: WBC, RBC, HGB, HCT, PLT Lipid Panel: No results found for: CHOLTOT, HDL, LDLCALC, LDLDIRECT,TRIGLYCERIDE HgbA1c: No results found for: HGBA1C, [id number] TSH: No results found for: TSH, TSHULTRA, THYROIDSTIM us Jorge L Crum MD ECG ORDERABLES Tequila mckeon Result [facility] [address] [place]# [id number] [place] [address] [place] [id number] from Last 3 Months Insurance [facility] CHOICE [id number] Care Teams Benefits Sales Consultant Relationship Specialty Start Date End Date Joseph Camargo MD [address] [place] [id number] PCP - General Family Practice 02/08/23
--- OUTSIDE RECORDS SUMMARY | 2024-11-12 12:30 | XMS_ITS | Data Portability ---
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 Palpitations/pr esyncopal episode: will check sugars, but consider cardiac etiology. Patient will see her Manager [facility] in [facility] [place], and discuss the symptoms with them, including additional testing. Tremors/Headach es: Patient is seeing [facility], and the symptoms respond to Botox. 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 Anxiety: Better recently. Palpitations: sees Dr. Martinez at [facility]. Placed on propranolol. Health Maintenance: Consider a flu shot in the fall. The plan was summarized for the patient. The patient voiced understanding. Patient should followup in 1 year, or sooner as needed shannan Not available 10/06/2024 22:59:39 Plan of Treatment Reminders Order Date Submit Date Provider Last Modified By Organization Details Last Modified Time Details Appointments New Patient Visit 10.NEW 2024 11:20A M Dr. Brittney Potter Not available Not available Not available Lab CMP, serum or plasma 2024 025 [facility], [facility] [address], [address], 10/06/2024 19:36:11 CBC w/ auto diff 2024 025 [facility] Only - [facility], [address] [place] [address], [id number], 10/06/2024 17:56:50 lipid panel, serum 2024 025 [facility] - [facility], [address] [place] [address], [address], 10/06/2024 19:36:13 hemoglobi n A1c + average glucose, QN, blood 2024 025 [facility] Only - [facility], [address] [place] [address], [address], 10/06/2024 19:49:41 TSH, serum or plasma 2024 025 [facility] - [facility], [address] [place] [address], [address], 10/06/2024 19:32:04 Referral None recorded. Procedures None recorded. Surgeries None recorded. Imaging None recorded. Medication Orders None recorded. Patient TargetsNo targets recorded. Patient InstructionsNo instructions recorded. Reason for Referral None Reported. Results Created Date Observation Date Name Description Value Unit Range Abnormal Flag Note LastModifiedBy Organization Detail LastModifiedTime 10/07/1910/06/2024 CBC w/ auto diff CBC with differential Not Available [facility] [address] [place] [address], [address], 10/06/2024 17:56:49 10/07/19 25 10/06/2024 CBC w/ auto diff WBC 6.1 K/uL 3.8-11 .2 Not Available [facility] [address] [place] [address], [address], 10/06/2024 17:56:49 10/07/19 25 10/06/2024 CBC w/ auto diff RBC 4.32 M/uL 3.92-5 .10 Not Available [facility] [address] [place] [address], 47[address], 10/06/2024 17:56:49 10/07/19 25 10/06/2024 CBC w/ auto diff HGB 13.8 g/dL 11.8-1 5.3 Not Available [facility] [address] [place] [address], [address], 10/06/2024 17:56:49 10/07/19 25 10/06/2024 CBC w/ auto diff HCT 41.8 % 36.5-4 4.8 Not Available [facility] [address] [place] [address], 15[address], 10/06/2024 17:56:49 10/07/19 25 10/06/2024 CBC w/ auto diff MCV 96.8 fL 80.0-9 9.0 Not Available [facility] [address] [place] [address], [address], 10/06/2024 17:56:49 10/07/19 25 10/06/2024 CBC w/ auto diff MCH 31.9 pg 25.5-3 3.6 Not Available [facility] [address] [place] [address], 15[address], 10/06/2024 17:56:49 10/07/19 25 10/06/2024 CBC w/ auto diff MCHC 33.0 g/dL 32.0-3 6.0 Not Available [facility] [address] [place] [address], 7[address], 10/06/2024 17:56:49 10/07/19 25 10/06/2024 CBC w/ auto diff RDW-SD 43.4 fL 35.1 - 46.3 Not Available [facility] [address] [place] [address], [address], 10/06/2024 17:56:49 10/07/19 25 10/06/2024 CBC w/ auto diff plt 320 K/uL 130-40 0 Not Available [facility] [address] [place] [address], [address], 10/06/2024 17:56:49 10/07/19 25 10/06/2024 CBC w/ auto diff MPV 9.7 fL 9.3-12 .8 Not Available [facility] [address] [place] [address], [address], 10/06/2024 17:56:49 10/07/19 25 10/06/2024 CBC w/ auto diff melia% 52.2 % not estab Not Available [facility] - [facility] [address] [place] [address], [address], 10/06/2024 17:56:49 10/07/19 25 10/06/2024 CBC w/ auto diff lym% 32.9 % not estab Not Available [facility] [address] [place] [address], 77[address], 10/06/2024 17:56:49 10/07/19 25 10/06/2024 CBC w/ auto diff mono% 8.9 % not estab Not Available [facility] [address] [place] [address], 6[address], 10/06/2024 17:56:49 10/07/19 25 10/06/2024 CBC w/ auto diff eos% 5.0 % not estab Not Available [facility] [address] [place] [address], 8[address], 10/06/2024 17:56:49 10/07/19 25 10/06/2024 CBC w/ auto diff baso% 1.0 % not estab Not Available [facility] - [facility] [address] [place] [address], [address], 10/06/2024 17:56:49 10/07/19 25 10/06/2024 CBC w/ auto diff abs melia 3.2 K/uL 1.8-7. 5 Not Available [facility] [address] [place] [address], 145[address], 10/06/2024 17:56:49 10/07/19 25 10/06/2024 CBC w/ auto diff abs lym 2.0 K/uL 1.1-3. 3 Not Available [facility] [address] [place] [address], 245[address], 10/06/2024 17:56:49 10/07/19 25 10/06/2024 CBC w/ auto diff abs mono 0.5 K/uL 0.1-1. 0 Not Available [facility] [address] [place] [address], 75[address], 10/06/2024 17:56:49 10/07/19 25 10/06/2024 CBC w/ auto diff abs eos 0.3 K/uL 0.0-0. 7 Not Available [facility] [address] [place] [address], [address], 10/06/2024 17:56:49 10/07/19 25 10/06/2024 CBC w/ auto diff abs baso 0.1 K/uL 0.0-0. 2 Not Available [facility] [address] [place] [address], 34[address], 10/06/2024 17:56:49 10/07/1910/06/2024 CBC w/ auto diff imm. gran % 0.0 % 0-5 Not Available [facility] [address] [place] [address], 67694, 10/06/2024 17:56:49 10/07/1910/06/2024 TSH, serum or plasm a TSH; reflex to free T4 Not Available [facility] - [facility] [address] [place] [address], [address], 10/06/2024 19:32:03 10/07/1910/06/2024 TSH, serum or plasm a TSH3 0.551 uIU/m L .340-5 .600 Not Available [facility] [address] [place] [address], [address], 10/06/2024 19:32:03 10/07/19 25 10/06/2024 CMP, serum or plasm a comp. met. panel Not Available [facility] [address] [place] [address], 84[address], 10/06/2024 19:36:11 10/07/19 25 10/06/2024 CMP, serum or plasm a sodium 141 mmol/ L 136-14 6 Not Available [facility] [address] [place] [address], 19907, 10/06/2024 19:36:11 10/07/19 25 10/06/2024 CMP, serum or plasm a potassium 3.9 mmol/ L 3.5-5. 1 Not Available [facility] [address] [place] [address], 7[address], 10/06/2024 19:36:11 10/07/19 25 10/06/2024 CMP, serum or plasm a chloride 104 mmol/ L 98-110 Not Available [facility] [address] [place] [address], [address], 10/06/2024 19:36:11 10/07/19 25 10/06/2024 CMP, serum or plasm a CO2 30 mEq/L 20-32 Not Available [facility] [address] [place] [address], 6[address], 10/06/2024 19:36:11 10/07/19 25 10/06/2024 CMP, serum or plasm a anion gap 11 mmol/ L 10-22 Not Available [facility] [address] [place] [address], 447[address], 10/06/2024 19:36:11 10/07/19 25 10/06/2024 CMP, serum or plasm a glucose 102 mg/dL 70-100 high Not Available [facility] [address] [place] [address], 16[address], 10/06/2024 19:36:11 10/07/19 10/06/2024 CMP, serum or plasm a calcium 9.6 mg/dL 8.4-10 .4 Not Available [facility] [address] [place] [address], [address], 10/06/2024 19:36:11 10/07/1910/06/2024 CMP, serum or plasm a total protein 7.2 g/dL 6.4-8. 3 Not Available [facility] [address] [place] [address], 51872, 10/06/2024 19:36:11 10/07/1910/06/2024 CMP, serum or plasm a albumin 4.6 g/dL 3.5-5. 3 Not Available [facility] [address] [place] [address], 60[address], 10/06/2024 19:36:11 10/07/1910/06/2024 CMP, serum or plasm a ALP 69 U/L 44 - 127 Not Available [facility] [address] [place] [address], [address], 10/06/2024 19:36:11 10/07/1910/06/2024 CMP, serum or plasm a AST (SGOT) 23 U/L 10-40 Not Available [facility] [address] [place] [address], [address], 10/06/2024 19:36:11 10/07/1910/06/2024 CMP, serum or plasm a total bilirubin 0.8 mg/dL 0.2-1. 2 Not Available [facility] [address] [place] [address], 516[address], 10/06/2024 19:36:11 10/07/1910/06/2024 CMP, serum or plasm a ALT (SGPT) 26 U/L 8-35 Not Available [facility] [address] [place] [address], 84471, 10/06/2024 19:36:11 10/07/19 25 10/06/2024 CMP, serum or plasm a BUN 16 mg/dL 7-21 Not Available [facility] [address] [place] [address], 35[address], 10/06/2024 19:36:11 10/07/19 25 10/06/2024 CMP, serum or plasm a creatinine 0.8 mg/dL 0.7-1. 3 Not Available [facility] [address] [place] [address], 639[address], 10/06/2024 19:36:11 10/07/19 25 10/06/2024 CMP, serum or plasm a CKD-epi GFR 88 eGFR was calcu lated using the 2020 CKD-E PI equat ion. (Couturiere ivy Kidne y Disea se has an eGFR less than 60 mL/mi n/1.7 3mm for a perio d of three month s or more. ) This calcu latio n has not been valid ated for patie nt ages <18 or >90 years old. Not Available [facility] [address] [place] [address], [address], 10/06/2024 19:36:11 10/07/1910/06/2024 lipid panel , serum lipid profile Not Available [facility] [address] [place] [address], 937[address], 10/06/2024 19:36:13 10/07/19 25 10/06/2024 lipid panel , serum cholesterol 197 mg/dL <25-20 0 Not Available [facility] [address] [place] [address], 21587, 10/06/2024 19:36:13 10/07/19 25 10/06/2024 lipid panel , serum triglyceride 195 mg/dL 15-200 Not Available [facility] [address] [place] [address], 937[address], 10/06/2024 19:36:13 10/07/19 25 10/06/2024 lipid panel , serum HDL 58 mg/dL >40 Not Available [facility] [address] [place] [address], 69136, 10/06/2024 19:36:13 10/07/19 25 10/06/2024 lipid panel , serum LDL, calculated 100 mg/dL 5-100 Not Available [facility] [address] [place] [address], 949[address], 10/06/2024 19:36:13 10/07/19 25 10/06/2024 lipid panel , serum VLDL 39 mg/dL 1-40 Not Available [facility] [address] [place] [address], 14116, 10/06/2024 19:36:13 10/07/19 25 10/06/2024 lipid panel , serum chol/HDL 3.4 ratio 0.0-4. 4 Not Available [facility] [address] [place] [address], 52724, 10/06/2024 19:36:13 10/07/19 25 10/06/2024 hemog lobin A1c + avera ge gluco se, QN, blood hemoglobin A1C Not Available [facility] [address] [place] [address], 18[address], 10/06/2024 19:49:41 10/07/19 25 10/06/2024 hemog lobin A1c + avera ge gluco se, QN, blood HGB A1C 5.8 %_A1C 4.3 - 5.6 high Not Available [facility] [address] [place] [address], 38988, 10/06/2024 19:49:41 10/07/19 25 10/06/2024 hemog lobin A1c + avera ge gluco se, QN, blood estimated average glucose 120 mg/dL Not Available [facility] [address] [place] [address], 17171, 10/06/2024 19:49:41 10/24/19 25 07/21/2018 imagi ng/di agnos tic resul t No observ ation record ed. [email or web address] Not Available 0 10/23/2024 21:31:52 10/24/19 25 09/18/2019 imagi ng/di agnos tic resul t No observ ation record ed. [email or web address] Not Available 0 10/23/2024 21:31:54 10/24/19 25 10/13/2018 imagi ng/di agnos tic resul t No observ ation record ed. [email or web address] Not Available 0 10/23/2024 21:31:56 Result Notes None recorded. Problems Name Problem SNOMED Code Status Onset Date Resolution Date Notes Provider Name and Address Organization Details Recorded Time Near syncope 654804463 Active 2024 Salomon leary MD [address] [place] [address], [phone], [facility] 5 15:24:37 Tremor 46301852 Active 2024 Salomon leary MD [address] [place] [address], [address], [facility] 5 15:24:55 Frequent headache 248106899 Active 2024 Salomon leary MD [address] [place] [address], [phone], [facility] 5 15:25:03 Anxiety 55173808 Active 2024 Salomon leary MD [address] [place] [address], [address], [facility] 5 15:25:12 Palpitations 40898258 Active 2024 Salomon leary MD [address] [place] [address], [address], [facility] 5 15:25:20 Intermittent palpitations 998777500 Active 2024 Salomon leary MD [address] [place] [address], [address], [facility] 5 15:25:29 Problem Notes None recorded. Procedures Surgical History Date Name Laterality Status Provider Name and Address Organization Details Recorded Time Colonoscopy with biopsy completed Not Available Health Note 10/01/2024 14:19:12 Imaging Results None recorded. Procedure Notes None recorded. Medical Equipment None Reported. Allergies Allergen ID Allergen Name Allergen Category Reaction Reaction Severity Criticality Documentation Date Start Date Code Code System Note Provider Name and Address Organization Details Recorded Time 8738571 doxycycli ne hyclate medicatio n Not available Not available Not available 05/22/20232014 17423 RxNorm Comme nt: React ion Date: 08 May 2011 ; Not Available [facility] 4 04:33:57 3862546 pecan nut food Not available Not available Not available 05/22/20232018 26629 UNK Comme nt: Pecan s ; Not Available [facility] 4 04:33:57 7708344 Product containin g penicilli n (product) medicatio n anaphylax is Not available Not available 05/22/20232005 09480 8001 SNOMED React ion: Anaph ylaxi s; Comme nt: Annot ation s: GRICEL MCGHEE 2005 8:51A M _HOSP ITALI ZED_; ; Not Available [facility] 4 04:33:57 4852304 walnut allergeni c extract food anaphylax is Not available Not available 10/01/2024 83645 0 RxNorm Not Available Health Note 5 14:19:12 308102 diclofena c sodium medicatio n rash Not available Not available 05/20/20232021 68937 4 RxNorm React ion: Rash; Not Available [facility] 4 21:50:38 507032 cephalexi n monohydra te medicatio n rash Not available Not available 05/20/20232006 96217 8 RxNorm React ion: Rash; Not Available [facility] 4 21:50:39 421878 Bactrim medicatio n rash Not available Not available 05/20/20232006 78401 9 RxNorm React ion: Rash; Comme nt: React ion Date: 12 Aug 2006 ; Not Available [facility] 21:50:39 602721 Substance with sulfonami de structure and antibacte rial mechanism of action (substanc e) medicatio n rash Not available Not available 05/20/20232009 81608 8003 SNOMED React ion: Rash; Not Available [facility] 21:50:39 Medications Name Sig Start Date Stop Date Status Note LastModified by Organization Details LastModified Time clindamycin HCl 150 mg capsule TAKE 4 CAPSULES BY MOUTH 1 HOUR PRIOR TO PROCEDURE 10/01 completed Not Available Not Available Not Available topiramate 25 mg tablet TAKE 1 TABLET BY MOUTH TWICE A DAY 10/06 completed Not Available Not Available Not Available propranolol ER 80 mg capsule,24 hr,extended release TAKE 1 CAPSULE BY MOUTH EVERY DAY active Not Available Not Available No t Available topiramate 50 mg tablet TAKE 1 TABLET TWICE A DAY 10/06 completed Not Available Not Available Not Available Glucosamine active Not Available Not A vailable Not Available Zyrtec active Not Available Not Availa ble Not Available multivitami n active Not Available Not Available Not Available Mirena active Not Available Not Availa ble Not Available Vitals Date Recorded Body height Body mass index (BMI) Body weight Oxygen saturation Oxygen saturation in Arterial blood by Pulse oximetry Heart rate Systolic And Diastolic Provider Name and Address Organization Details Last Updated DateTime 5 172.72 cm 26.9 kg/m2 26150.8 5 g 95 % 95 % 83 /min 150/74 mm[Hg] Khushi Meyer [facility] 5 14:46:42 Social History Question Answer Notes LastModified by Organizat ion Details LastModified Time Tobacco Smoking Status Never Smoker Not Available Health Note 10/01/2024 14:19:13 Do You Have An Advance Directive? Yes [email or web address] Information not available 10/01/2024 What Is Your Level Of Caffeine Consumption? Occasional [email or web address] Information not available 10/01/2024 What Is Your Code Status? Other [email or web address] Information not available 10/01/2024 How Many Times Per Week Do You Exercise? 1-2 Times Per Week [email or web address] Information not available 10/01/2024 What Was The Date Of Your Most Recent Tobacco Screening? 10/06/2024 [email or web address] Information not available 10/01/2024 What Is Your Relationship Status? [email or web address] Information not available 10/01/2024 Sex: Unknown Functional Status Question Answer Note LastModified by Organizat ion Details LastModified Time How many times per week do you consume alcohol? 3-4 times per week [email or web address] Information not available 10/01/2024 Do you use any illicit or recreational drugs? No [email or web address] Information not available 10/01/2024 Do you or have you ever used any other forms of tobacco or nicotine? No [email or web address] Information not available 10/01/2024 What is your level of alcohol consumption? Occasional [email or web address] Information not available 10/01/2024 Are you currently employed? 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 Occasional [email or web address] Information not available 10/01/2024 Mental Status None recorded. Family History Relationship Description Onset Age of this Age Resolved Age Notes LastModified by Organization Details LastModified Time Father Arthritis [email or web address] Not available 10/01/2024 14:19:11 Mother Asthma [email or web address] Not available 14:19:11 Mother Family history of malignant neoplasm [email or web address] Not available 2024 14:19:11 Mother Hypertensive disorder [email or web address] Not available 2024 14:19:11 Brother Asthma [email or web address] Not available 0 10/01/2024 14:19:11 Paternal Grandmother Diabetes mellitus [email or web address] Not available 2024 14:19:11 Medical History Condition Response Diabetes N Anxiety Disorder N Bleeding Disorder N Attention-deficit Hyperactivity Disorder N High Blood Pressure N Arthritis N Hyperlipidemia N Cancer N Stroke N Thyroid Problems N Asthma N Depression N COPD N Anemia N Seizures N Heart Disease N Fibromyalgia N Osteoporosis N Kidney Disease N Gynecological History Statement/Question Response Abnormal Pap Y Age at Menarche 13 Current Control Method IUD Obstetrics History GPAL:G 0 P 0 0 0 0 Immunizations Vaccine Type Date Status Note Provider Nam e and Address Organization Details Recorded Time Influenza, adjuvanted, quadrivalent, PF 02/13/[address] [facility] [place] 05/12/2024 09:13:36 Past Encounters Encounter ID Performer Location Encounter Start Date Encounter Closed Date Diagnosis/Indication Diagnosis SNOMED-CT Code Diagnosis ICD10 Code Diagnosis Note [id number] Salomon carrasco MD [facility] ([place]) [address] [place] [phone] 10/06/2024 14:26:29 10/06/2024 15:42:21 Near syncope 107065715 R55 Tremor 11825542 R25.1 Frequent headache 895124 003 R51.9 Anxiety 36615272 F41.9 Intermitte nt palpitations 126170895 R00.2 General ex amination of patient 401676179 Z00.00 Health Concerns Section Related Observation LastModified by Organization Detai ls LastModified Time None Recorded Concern Status LastModified by Organization Details LastModified Time None Recorded Advance Directives Directive Y: Payers Insurance Date Sequence Insurance Name Policy Number Policy Smiley Covered Member ID Smiley Member ID Guarantor Name 10/07/2024 1 [facility] [id number] Josette Velasquez [id number] Josette Velasquez Notes Date Note Type Note Provider Name and Address Organization Details Recorded Time 10/06/2024 text/html Josette Velasquez is a 54 year old female presenting for care. Past Gynecology History: Still has a menstrual cycle: yes Date of last pap smear: 10/21/2023 Date of last mammogram: 04/25/2024 Palpitations/presy ncopal episode: Patient reports a single episode, resolved with eating. Occurred in late 09/13.Sleep study was essentially normal, with only minimal snoring, and minimal apneas. Tremors/Headaches: Patient is seeing [facility], and the symptoms respond to Botox. 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 Anxiety: Better recently. Palpitations: sees Dr. Martinez at [facility]. Placed on propranolol. Health Maintenance: Blood pressure is 150/74. No history of smoking. Has about 0-7 alcoholic drinks/week. Last lipid panel and CMP were in 2020. BMI is 26.9. Patient is up to date on vaccines for influenza, and TDaP (07/2022). S/p Moderna x 2. Sees Justin Lai for gyne care. Family history is significant for breast cancer, DM, Atrial fibrillation. Last mammogram was 04/2022. Salomon Camargo MD [address] [place] [address], [phone], [facility] 10/06/2024 22:59:47 OBGyn Episode No OBEpisode recorded.
== END 2024-11-12 12:26 | disposition home or self-care (01) ==
PROVIDERS: Visit Provider Obstetrics & Gynecology Gynecology
DX: Z12.31 Encounter for screening mammogram for malignant neoplasm of breast (principal)
CPT/HCPCS: 77063; 77067

== ENCOUNTER 2025-04-21 09:42 | Outpatient (CLI) | payer OTHER, SELFPAY ==
--- NOTE | ~2025-04-21 | XR_ITS ---
EXAMINATION: XR lumbar spine min 4V DATE: 04/21/2025 10:00 INDICATION: Vertebra genic low back pain. Sacrococcygeal disorder. TECHNIQUE: Standing anteroposterior, lateral, and bilateral oblique views of the lumbar spine, and cone-down lateral view of the lumbosacral junction were obtained. COMPARISON: None. FINDINGS: Alignment is normal. Vertebral body heights are normal. Mild disc height loss at L4-L5 and L5-S1. No evident spondylolisthesis. Moderate osteoarthritis bilaterally at L4-L5 and on the left at L3-L4. Mild facet osteoarthritis and more cephalad lumbar spine. Mild left and mild to moderate right sacroiliac osteoarthritis. Sacral arches are intact. Bilateral nephrolithiasis with at least 4 stones in the right kidney measuring up to 3-4 mm and at least 7 stones at the left kidney measuring up to 3 mm. IMPRESSION: 1. Mild lower lumbar spondylosis. 2. Bilateral nephrolithiasis. Reviewed, dictated and finalized at location A. 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
== END 2025-04-21 09:43 | disposition home or self-care (01) ==
PROVIDERS: PCP Chiropractor; Visit Provider Chiropractor
DX: M54.51 Vertebrogenic low back pain (principal); M99.03 Segmental and somatic dysfunction of lumbar region; M53.3 Sacrococcygeal disorders, not elsewhere classified; M99.04 Segmental and somatic dysfunction of sacral region; M99.05 Segmental and somatic dysfunction of pelvic region; M47.896 Other spondylosis, lumbar region; N20.0 Calculus of kidney
CPT/HCPCS: 72110